=== PATIENT | male | born 1935 | race African-American/Black ===

== ENCOUNTER → 2017-08-24 | Outpatient (REF) | payer OTHER, MEDICARE, MEDICAID ==
[~2017-08-24] MED LIST: AMLO-552 PO; ASP325 PO; ASPI-1471 PO; BRIM5DRO7 OP; CELE-1 PO; DEXL30CA5 PO; DEXL60CA6 PO; DIC75 PO; FES4PT PO; FINA5TAB64 PO; HYDR-4309 PO; LOR5/325 PO; MELO-207 PO; METXR500 PO; MIRA25TA PO; MIRA50TA PO; NAPR500T75 PO; NIAC100040 PO; OMEP-137 PO; OMEP40CA45 PO; ONDA4TAB PO; OXYC-869 PO; PANT40TA65 PO; PER PO; PRAM0.5T27 PO; ROS10 PO; SOLI10TA8 PO; SOLI5TAB PO; TAMS0.4C70 PO; TEST200V2 IM; [UNRECOGNIZED DRUG - CODE] PO; [UNRECOGNIZED DRUG - CODE] PO
[2017-08-24 07:52] LABS: PLATELET COUNT, AUTOMATED 219 K/uL (150-450)
== END ==
LOC: ZZLCC 07:24
PROVIDERS: ATTEND Family Medicine
DX: I63.9 Cerebral infarction, unspecified (principal); E11.9 Type 2 diabetes mellitus without complications; E78.5 Hyperlipidemia, unspecified
CPT/HCPCS: 82040; 82247; 82310; 82374; 82435; 82465; 82565; 82947; 83036; 83718; 84075; 84132; 84155; 84295; 84450; 84460; 84478; 84520; 85025

== ENCOUNTER → 2018-03-08 | Outpatient (CLI) | payer MEDICARE, MEDICAID ==
[~2018-03-08] MED LIST changes: +GADOBENATE 529MG/1ML 15ML VIAL IVP ONE
--- NOTE | 2018-03-08 15:53 | RADIOLOGY IMAGING REPORT ---
FACILITY: [facility] PATIENT NAME: Italo Koch : 1935 MR: [id number] V: [id number] EXAM DATE: ORDERING PHYSICIAN: HAIDER BUSH TECHNOLOGIST: Location: [facility] [place] Patient: Italo Koch : 1935 Visit/Account:[id number] Date of Sevice: 03/08/2018 BRAIN W W/O CONTRAST Comparisons: Head CT scan without contrast dated October 23, 2016 Additional pertinent history: Memory loss TECHNIQUE: Multiplanar, multisequence brain MRI was performed with and without gadolinium contrast. CONTRAST: 12 ml of MultiHance. FINDINGS: Sagittal midline structures and craniocervical junction: Negative. Midline shift: None. Ventricles: Moderate enlargement of the lateral and third ventricles, appropriate for the degree of a trophy present. Brain parenchyma: Diffusion weighted imaging: Negative. Gradient sequence: Negative. T2 weighted FLAIR images: Patchy and confluent regions of abnormal increased T2 signal within the p eriventricular and subcortical white matter, nonspecific but likely representing small vessel ischemi c change on a chronic basis. Extra-axial spaces: Moderate cerebral atrophy. Dural venous sinuses and major arterial flow voids: Negative. Intracranial enhancement: Negative.. Mastoid air cells and paranasal sinuses: Mild mucosal thickening involving the maxillary sinuses and ethmoid air cells as well as the left mastoid air cells. Surrounding soft tissues and orbits: Previous enucleation of the right globe. Otherwise negative Impression: 1. Age related changes as described above. 2. No evidence of acute intracranial pathology. Report Dictated By: Saul Price MD at 03/08/2018 3:45 PM Report E-Signed By: Saul Price MD at 03/08/2018 3:48 PM [id number]
== END ==
LOC: MRI 04:51
PROVIDERS: ATTEND Family Medicine
DX: G31.1 Senile degeneration of brain, not elsewhere classified (principal); J32.0 Chronic maxillary sinusitis; Z90.01 Acquired absence of eye
CPT/HCPCS: 70553; A9577

== ENCOUNTER 2018-04-21 09:16 | Emergency (ER) | payer MEDICARE, MEDICAID ==
[~2018-04-21 09:16] MED LIST changes: -AMLO-111 PO; -ATOR20TA65 PO; -CLOP75TA PO; -LOSA50TA74 PO; -MIRT7.5T2 PO; -OXYB5TAB86 PO; -PANT20TA27 PO; -TRAM-420 PO
--- NOTE | 2018-04-21 09:22 | ER Report ---
History and Physical Time Seen By MD: 09:21 HPI/ROS CHIEF COMPLAINT: Episode of unresponsiveness,. Episode of altered mental status HISTORY OF PRESENT ILLNESS: Patient is an 83-year-old male here from the [facility] with a reported episode of not responding to staff, increased confusion. Staff reports that they attempted to wake the patient with the was not responding to them prompting evaluation in the emergency department. Patient has a history of dementia, diabetes, CK-MB. Staff denies history of recent fall. Patient was in no acute distress at time of evaluation, hemodynamically stable, maintaining oxygen saturations greater than 92% at time of evaluation. Patient was oriented to place. Patient's power of employment attorney was present at bedside shortly after arrival and voiced that this was his baseline mental status. Patient was in no acute distress, afebrile, hemodynamically stable. REVIEW OF SYSTEMS: Constitutional: No fever, no chills. Eyes: No discharge. ENT: No sore throat. Cardiovascular: No chest pain, no palpitations. Respiratory: No cough, no shortness of breath. Gastrointestinal: No abdominal pain, no vomiting. Genitourinary: No hematuria. Musculoskeletal: No back pain. Skin: No rashes. Neurological: + baseline mentation per POA, no new focal deficits Allergies: Coded Allergies: No Known Allergies (Verified Allergy, Mild, 04/21/18) Home Meds Reported Medications Tramadol Hcl (TRAMADOL HCL) 50 Mg Tablet, 50-100 MG PO Q6H, TAB 04/21/18 Pantoprazole Sodium (PANTOPRAZOLE SODIUM) 20 Mg Tablet.dr, 20 MG PO QDAY, TAB.SR 04/21/18 Oxybutynin Chloride (OXYBUTYNIN CHLORIDE) 5 Mg Tablet, 15 MG PO QDAY, TAB 04/21/18 Mirtazapine (MIRTAZAPINE) 7.5 Mg Tablet, 7.5 MG PO 04/21/18 Losartan Potassium (LOSARTAN POTASSIUM) 50 Mg Tablet, 50 MG PO QDAY 04/21/18 Clopidogrel Bisulfate (CLOPIDOGREL) 75 Mg Tablet, 1 TAB PO QDAY, TAB 04/21/18 Atorvastatin Calcium (ATORVASTATIN CALCIUM) 20 Mg Tablet, 1 TAB PO QDAY, TAB 04/21/18 Amlodipine Besylate (AMLODIPINE BESYLATE) 5 Mg Tablet, 1 TAB PO QDAY, TAB 11/7/18 Tamsulosin Hcl (TAMSULOSIN HCL) 0.4 Mg Cap.er.24h, 0.4 MG PO QHS, CAP 10/23/16 Metformin Hcl (Metformin Er) 500 Mg Tab.sr.24h, 1000 MG PO BID, 0 Refills 03/07/11 Discontinued Reported Medications Testosterone Enanthate (TESTOSTERONE ENANTHATE) 200 Mg/1 Ml Vial, 200 MG IM MONTHLY, VIAL 10/23/16 Meloxicam (MELOXICAM) 15 Mg Tablet, 15 MG PO QDAY 10/23/16 Solifenacin Succinate (VESICARE) 10 Mg Tablet, 10 MG PO QHS 10/23/16 Finasteride (PROSCAR) 5 Mg Tablet, 5 MG PO QDAY 10/23/16 Mirabegron (MYRBETRIQ) 50 Mg Tab.er.24h, 50 MG PO QDAY 10/23/16 Dexlansoprazole (DEXILANT) 60 Mg Cap., 60 MG PO QDAY 10/23/16 Aspirin (ASPIR 81) 81 Mg Tablet.dr, 81 MG PO QDAY, TAB 10/23/16 Amlodipine Bes/Olmesartan Med (DORENE 10-40 MG TABLET) 1 Each Tablet, 1 EACH PO QDAY 10/23/16 Niacin (Niaspan) 1,000 Mg Tablet.sa, 1000 MG PO QHS, 0 Refills 03/07/11 Hx Smoking: Yes ("ONLY 1-2 CIGARETTES A DAY" ) Smoking Status: Former Smoker, Light Tobacco Smoker Hx Substance Use Disorder: No Hx Alcohol Use: No Constitutional Vital Sign - Last 24 Hours 04/21/18 09:19 Temp 98.3 Pulse 86 Resp 20 B/P (MAP) 125/86 Pulse Ox 100 O2 Delivery Nasal Cannula Physical Exam General Appearance: The patient is alert, has no immediate need for airway protection and no signs of toxicity. NAD Eyes: No acute deformities or signs of trauma or foreign bodies. ENT, Mouth: Mucous membranes are moist. Respiratory: There are no retractions, lungs are clear to auscultation. Cardiovascular: Regular rate and rhythm. Gastrointestinal: Abdomen is soft and non tender, no masses, bowel sounds normal. Neurological: No focal neurological findings, moving all extremities spontaneously, baseline mental status per POA at bedside Skin: Warm and dry, no rashes. Musculoskeletal: Neck is supple non tender. Extremities are nontender, nonswollen and have full range of motion. DIFFERENTIAL DIAGNOSIS: After history and physical exam differential diagnosis was considered for dehydration, trauma, intracranial bleed, concussion, electrolyte abnormality, infection, progressive neurological decline Medical Decision Making Data Points Result Diagram: 04/21/1827 04/21/1827 Laboratory Hematology Test 04/21/18 09:27 04/21/18 10:10 Red Blood Count 3.63 M/uL (4.00-5.60) Mean Corpuscular Volume 94.4 fL (80.0-96.0) Mean Corpuscular Hemoglobin 31.6 pg (26.0-33.0) Mean Corpuscular Hemoglobin Concent 33.5 g/dL (32.0-36.0) Red Cell Distribution Width 14.6 % (11.5-14.5) Mean Platelet Volume 8.2 fL (7.2-11.1) Neutrophils (%) (Auto) 63.7 % (39.4-72.5) Lymphocytes (%) (Auto) 25.9 % (17.6-49.6) Monocytes (%) (Auto) 7.1 % (4.1-12.4) Eosinophils (%) (Auto) 2.7 % (0.4-6.7) Basophils (%) (Auto) 0.6 % (0.3-1.4) Nucleated RBC Relative Count (auto) 0.1 /100WBC Neutrophils # (Auto) 4.5 K/uL (2.0-7.4) Lymphocytes # (Auto) 1.8 K/uL (1.3-3.6) Monocytes # (Auto) 0.5 K/uL (0.3-1.0) Eosinophils # (Auto) 0.2 K/uL (0.0-0.5) Basophils # (Auto) 0.0 K/uL (0.0-0.1) Nucleated RBC Absolute Count (auto) 0.01 K/uL Sodium Level 138 mmol/L (137-145) Potassium Level 4.9 mmol/L (3.5-5.0) Chloride Level 103 mmol/L (98-107) Carbon Dioxide Level 26 mmol/L (22-30) Blood Urea Nitrogen 18 mg/dl (9-21) Creatinine 1.30 mg/dl (0.66-1.25) Glomerular Filtration Rate Calc 52.9 Random Glucose 124 mg/dl (75-110) Calcium Level 9.7 mg/dl (8.4-10.2) Total Bilirubin 0.5 mg/dl (0.2-1.3) Aspartate Amino Transf (AST/SGOT) 15 U/L (0-35) Alanine Aminotransferase (ALT/SGPT) 22 U/L (0-56) Alkaline Phosphatase 65 U/L (0-126) Troponin I < 0.012 ng/ml Total Protein 7.3 g/dl (6.3-8.2) Albumin 3.9 g/dl (3.5-5.0) Thyroid Stimulating Hormone (TSH) 4.86 uIU/ml (0.46-4.68) Urine Color Yellow Urine Clarity Clear Urine pH 5.0 pH (4.8-9.5) Urine Specific [place] 1.012 Urine Protein Negative mg/dL (NEGATIVE) Urine Glucose (UA) Negative mg/dL (NEGATIVE) Urine Ketones Negative mg/dL (NEGATIVE) Urine Blood Negative (NEGATIVE) Urine Nitrite Negative (NEGATIVE) Urine Bilirubin Negative (NEGATIVE) Urine Urobilinogen Negative mg/dL (0.2-1.9) Urine Leukocyte Esterase Negative (NEGATIVE) Urine RBC None /HPF (0-2/HPF) Urine WBC <1 /HPF (0-5/HPF) Urine Squamous Epithelial Cells None /LPF (</=FEW) Urine Bacteria Negative /HPF (NONE-FEW) Urine Hyaline Casts Few /LPF (NONE-FEW) Urine Mucus Few /HPF (NONE-FEW) Chemistry Test 04/21/18 09:27 04/21/18 10:10 White Blood Count 7.1 k/uL (4.5-11.0) Red Blood Count 3.63 M/uL (4.00-5.60) Hemoglobin 11.5 g/dL (14.0-18.0) Hematocrit 34.3 % (42.0-52.0) Mean Corpuscular Volume 94.4 fL (80.0-96.0) Mean Corpuscular Hemoglobin 31.6 pg (26.0-33.0) Mean Corpuscular Hemoglobin Concent 33.5 g/dL (32.0-36.0) Red Cell Distribution Width 14.6 % (11.5-14.5) Platelet Count 308 K/uL (150-450) Mean Platelet Volume 8.2 fL (7.2-11.1) Neutrophils (%) (Auto) 63.7 % (39.4-72.5) Lymphocytes (%) (Auto) 25.9 % (17.6-49.6) Monocytes (%) (Auto) 7.1 % (4.1-12.4) Eosinophils (%) (Auto) 2.7 % (0.4-6.7) Basophils (%) (Auto) 0.6 % (0.3-1.4) Nucleated RBC Relative Count (auto) 0.1 /100WBC Neutrophils # (Auto) 4.5 K/uL (2.0-7.4) Lymphocytes # (Auto) 1.8 K/uL (1.3-3.6) Monocytes # (Auto) 0.5 K/uL (0.3-1.0) Eosinophils # (Auto) 0.2 K/uL (0.0-0.5) Basophils # (Auto) 0.0 K/uL (0.0-0.1) Nucleated RBC Absolute Count (auto) 0.01 K/uL Glomerular Filtration Rate Calc 52.9 Calcium Level 9.7 mg/dl (8.4-10.2) Total Bilirubin 0.5 mg/dl (0.2-1.3) Aspartate Amino Transf (AST/SGOT) 15 U/L (0-35) Alanine Aminotransferase (ALT/SGPT) 22 U/L (0-56) Alkaline Phosphatase 65 U/L (0-126) Troponin I < 0.012 ng/ml Total Protein 7.3 g/dl (6.3-8.2) Albumin 3.9 g/dl (3.5-5.0) Thyroid Stimulating Hormone (TSH) 4.86 uIU/ml (0.46-4.68) Urine Color Yellow Urine Clarity Clear Urine pH 5.0 pH (4.8-9.5) Urine Specific [place] 1.012 Urine Protein Negative mg/dL (NEGATIVE) Urine Glucose (UA) Negative mg/dL (NEGATIVE) Urine Ketones Negative mg/dL (NEGATIVE) Urine Blood Negative (NEGATIVE) Urine Nitrite Negative (NEGATIVE) Urine Bilirubin Negative (NEGATIVE) Urine Urobilinogen Negative mg/dL (0.2-1.9) Urine Leukocyte Esterase Negative (NEGATIVE) Urine RBC None /HPF (0-2/HPF) Urine WBC <1 /HPF (0-5/HPF) Urine Squamous Epithelial Cells None /LPF (</=FEW) Urine Bacteria Negative /HPF (NONE-FEW) Urine Hyaline Casts Few /LPF (NONE-FEW) Urine Mucus Few /HPF (NONE-FEW) Urinalysis Test 04/21/18 10:10 Urine Color Yellow Urine Clarity Clear Urine pH 5.0 pH (4.8-9.5) Urine Specific [place] 1.012 Urine Protein Negative mg/dL (NEGATIVE) Urine Glucose (UA) Negative mg/dL (NEGATIVE) Urine Ketones Negative mg/dL (NEGATIVE) Urine Blood Negative (NEGATIVE) Urine Nitrite Negative (NEGATIVE) Urine Bilirubin Negative (NEGATIVE) Urine Urobilinogen Negative mg/dL (0.2-1.9) Urine Leukocyte Esterase Negative (NEGATIVE) Urine RBC None /HPF (0-2/HPF) Urine WBC <1 /HPF (0-5/HPF) Urine Squamous Epithelial Cells None /LPF (</=FEW) Urine Bacteria Negative /HPF (NONE-FEW) Urine Hyaline Casts Few /LPF (NONE-FEW) Urine Mucus Few /HPF (NONE-FEW) EKG/Imaging EKG Interpretation 12 lead EKG: Normal sinus rhythm, rate 76, QTC 418, no arrhythmias or ischemic changes Rhythm: normal sinus rhythm [place]: normal QRS: normal ST segments: normal Monitor Interpretation: Normal Sinus Rhythm Imaging Location: [facility] [place] Patient: Italo Koch : 1935 Visit/Account:[id number] Date of Sevice: 04/21/2018 Chest with lateral, two views. HISTORY: Altered mental status. COMPARISON: 10/23/2016. The aortic knob is calcified. The heart and mediastinum are otherwise unre markable. Pulmonary vessels are unremarkable. Interstitial markings are mildly thickened in the lung bases, unchanged. The lungs are otherwise clear. The pleural surfaces are unremarkable. No pneumothorax. A healed fracture is present in the right sixth rib. IMPRESSION: No evidence of acute cardiopulmonary disease. EXAMINATION: CT Head without intravenous contrast HISTORY: Altered mental status. TECHNIQUE: Axial images were obtained from the skull base to the vertex without intravenous contrast. Sagittal and coronal reformatted images are also submitte d. One of the following dose optimization techniques was utilized in the performance of this exam: Automated exposure control; adjustment of the mA and/or kV according to the patient's size; or use of an iterative reconstruction technique. Specific details can be referenced in the facility's radiology CT exam operational policy. COMPARISON: 10/23/2016. FINDINGS: Brain volume: Mild to moderate generalized brain parenchymal volume loss. Ventricles: Negative. Acute ischemic changes: None. Hemorrhage: None. Masses / edema: None. Brown-white: Stable mild chronic ischemic changes in the basal ganglia. White matter: Stable moderate to severe chronic microvascular ischemic changes. Vessels: Calcified plaque in the carotid siphons and right vertebral artery. Normal density in the dural venous sinuses. Extra-axial: Negative. Calvarium / skull base: Negative. Visualized sinuses / orbits: Right globe prosthesis. IMPRESSION: No acute intracranial abnormality. ED Course/Re-evaluation ED Course Patient is an 83-year-old male here status post episode of decreased responsiveness at the [facility] In the setting of progressive dementia per patient's power of employment attorney who was at bedside. Patient was hydrated using 1.5 L of fluid with significant improvement of symptoms. Labs were unremarkable, EKG showed no acute findings. CT of the head showed no acute findings or intracranial bleeds and x-ray showed no signs of consolidation or edema. I discussed the findings with the patient's power of employment attorney who voice und erstanding and noted that the patient was more alert and oriented than he had been and months. Daily interventions pursued in the emergency department where IV hydration which may reveal that the patient was mildly dehydrated. Patient was returned to the [facility] in stable condition. Decision to Disposition Date: Apr 21, 2018 Decision to Disposition Time: 12:30 Depart Departure Latest Vital Signs Vital Signs Date Time Temp Pulse Resp B/P (MAP) Pulse Ox O2 Delivery O2 Flow Rate FiO2 04/21/18 09:19 98.3 86 20 125/86 100 Nasal Cannula Impression: Primary Impression: Confusion Condition: Improved Disposition: HOME OR SELF-CARE Referrals: HAIDER BUSH DO (PCP) Patient Instructions: Dehydration (ED) Additional Instructions: Please drink plenty of water. Today you were given 1.5 L of normal saline. CT imaging of your head showed no acute findings of bleeding or fluid on the brain. Chest x-ray showed no signs of infection such as pneumonia or bronchitis or pulmonary edema. Please follow up closely with your family doctor in the next 2 days. I discussed your findings and plan for care with your power of employment attorney. Please return promptly if you develop recurrent symptoms, change in mental status, fevers, shortness of breath, abdominal pain, nausea, vomiting. RADHA MARROQUIN DO Apr 21, 2018 09:22
[2018-04-21] MEDS ORDERED: NS(*) 0.9% 1000 ML BAG 1,000 ML IV ONE (09:27)
[2018-04-21 09:35] LABS: PLATELET COUNT, AUTOMATED 308 K/uL (150-450)
[2018-04-21] MEDS ORDERED: OXYB5TAB86 PO (09:45)
[2018-04-21] MEDS ORDERED: LOSA50TA74 PO (09:45)
[2018-04-21] MEDS ORDERED: AMLO-111 PO (09:45)
[2018-04-21] MEDS ORDERED: ATOR20TA65 PO (09:45)
[2018-04-21] MEDS ORDERED: CLOP75TA PO (09:45)
[2018-04-21] MEDS ORDERED: MIRT7.5T2 PO (09:45)
[2018-04-21] MEDS ORDERED: TRAM-420 PO (09:45)
[2018-04-21] MEDS ORDERED: PANT20TA27 PO (09:45)
--- NOTE | 2018-04-21 10:45 | EKG ---
FACILITY: [facility] PATIENT NAME: BLOSSOM SILVA : [id number] MR: [id number] V: [id number] EXAM DATE: ORDERING PHYSICIAN: RADHA MARROQUIN TECHNOLOGIST: SALAS Test Reason : AMS Blood Pressure : / mmHG Vent. Rate : 076 BPM Atrial Rate : 076 BPM P-R Int : 194 ms QRS Dur : 076 ms QT Int : 372 ms P-R-T Axes : 056 054 053 degrees QTc Int : 418 ms Normal sinus rhythm Normal ECG When compared with ECG of 23-OCT-2016 18:51, Nonspecific T wave abnormality no longer evident in Lateral leads Confirmed by Karel Orta ([id number]) on 04/21/2018 7:58:48 PM Referred By: CARA Confirmed By:Karel Solitario
--- NOTE | 2018-04-21 11:10 | RADIOLOGY IMAGING REPORT ---
FACILITY: [facility] - [place] PATIENT NAME: Italo Koch : 1935 MR: [id number] V: [id number] EXAM DATE: ORDERING PHYSICIAN: RADHA MARROQUIN TECHNOLOGIST: Location: [facility] [place] Patient: Italo Koch : 1935 Visit/Account:[id number] Date of Sevice: 04/21/2018 EXAMINATION: CT Head without intravenous contrast HISTORY: Altered mental status. TECHNIQUE: Axial images were obtained from the skull base to the vertex without intravenous contrast . Sagittal and coronal reformatted images are also submitted. One of the following dose optimization techniques was utilized in the performance of this exam: Autom ated exposure control; adjustment of the mA and/or kV according to the patient's size; or use of an i terative reconstruction technique. Specific details can be referenced in the facility's radiology C T exam operational policy. COMPARISON: 10/23/2016. FINDINGS: Brain volume: Mild to moderate generalized brain parenchymal volume loss. Ventricles: Negative. Acute ischemic changes: None. Hemorrhage: None. Masses / edema: None. Brown-white: Stable mild chronic ischemic changes in the basal ganglia. White matter: Stable moderate to severe chronic microvascular ischemic changes. Vessels: Calcified plaque in the carotid siphons and right vertebral artery. Normal density in the d ural venous sinuses. Extra-axial: Negative. Calvarium / skull base: Negative. Visualized sinuses / orbits: Right globe prosthesis. IMPRESSION: No acute intracranial abnormality. Report Dictated By: Cachorro Owusu MD at 04/21/2018 11:02 AM Report E-Signed By: Cachorro Owusu MD at 04/21/2018 11:06 AM WSN:[email or web address]
--- NOTE | 2018-04-21 11:18 | RADIOLOGY IMAGING REPORT ---
FACILITY: [facility] PATIENT NAME: Italo Koch : 1935 MR: [id number] V: [id number] EXAM DATE: ORDERING PHYSICIAN: RADHA MARROQUIN TECHNOLOGIST: Location: [facility] - [place] Patient: Italo Koch : 1935 Visit/Account:[id number] Date of Sevice: 04/21/2018 Chest with lateral, two views. HISTORY: Altered mental status. COMPARISON: 10/23/2016. The aortic knob is calcified. The heart and mediastinum are otherwise unremarkable. Pulmonary vesse ls are unremarkable. Interstitial markings are mildly thickened in the lung bases, unchanged. The l ungs are otherwise clear. The pleural surfaces are unremarkable. No pneumothorax. A healed fracture is present in the right sixth rib. IMPRESSION: No evidence of acute cardiopulmonary disease. Report Dictated By: Kobe Gonzalez MD at 04/21/2018 11:11 AM Report E-Signed By: Kobe Gonzalez MD at 04/21/2018 11:14 AM WSN:[id number]
[2018-04-21 11:30] VITALS: BP 130/74
[2018-04-21] MEDS ORDERED: NS(*) 0.9% 500 ML BAG 500 ML IV ONE (11:55)
== END 2018-04-21 12:53 | disposition home or self-care (01) ==
LOC: ER 09:32
DX: R41.0 Disorientation, unspecified (principal); E86.0 Dehydration
CPT/HCPCS: 70450; 71046; 81001; 84443; 84484; 85025; 93005; 96360; 96361; 99284; J7030; J7040; 36416; 82040; 82247; 82310; 82374; 82435; 82565; 82947; 82948; 84075; 84132; 84155; 84295; 84450; 84460; 84520

== ENCOUNTER → 2018-04-21 | Outpatient (CLI) | payer MEDICARE, MEDICAID ==
[~2018-04-21] MED LIST changes: +AMLO-111 PO; +ATOR20TA65 PO; +CLOP75TA PO; -GADOBENATE 529MG/1ML 15ML VIAL IVP ONE; -HYDR-4309 PO; +HYDR-653 PO; +LOSA50TA74 PO; +MIRT7.5T2 PO; +OXYB5TAB86 PO; +PANT20TA27 PO; +TRAM-420 PO
== END ==
LOC: AMB 09:02
PROVIDERS: ATTEND Nurse Practitioner
DX: R55 Syncope and collapse (principal); R53.1 Weakness
CPT/HCPCS: A0425; A0428; A0427

== ENCOUNTER → 2018-07-26 | Outpatient (REF) | payer MEDICARE, MEDICAID ==
[~2018-07-26] MED LIST changes: +AMLO-125 PO; +ATOR20TA65 PO; +CLOP75TA PO; +LOSA50TA80 PO; +MIRT7.5T2 PO; +OXYB5TAB86 PO; +PANT20TA27 PO; +TRAM-420 PO
== END ==
LOC: ZZLCC 19:30
PROVIDERS: ATTEND Family Medicine
DX: R50.9 Fever, unspecified (principal); R53.81 Other malaise
CPT/HCPCS: 87502

== ENCOUNTER → 2018-08-01 | Outpatient (REF) | payer MEDICARE, MEDICAID | LOC: ZZLCC 11:08 | PROVIDERS: ATTEND Family Medicine | DX: I63.9 Cerebral infarction, unspecified (principal); I69.319 Unspecified symptoms and signs involving cognitive functions following cerebral infarction; N18.9 Chronic kidney disease, unspecified; N39.0 Urinary tract infection, site not specified; Z79.899 Other long term (current) drug therapy | CPT/HCPCS: 81001; 85027; 87088 ==

== ENCOUNTER → 2018-08-02 | Outpatient (REF) | payer MEDICARE, MEDICAID | LOC: ZZLCC 18:43 | PROVIDERS: ATTEND Family Medicine | DX: N39.0 Urinary tract infection, site not specified (principal) | CPT/HCPCS: 85025; 85027 ==

== ENCOUNTER → 2018-08-13 | Outpatient (CLI) | payer MEDICARE, MEDICAID ==
[2018-08-13 15:16] LABS: PLATELET COUNT, AUTOMATED 367 K/uL (150-450)
== END ==
LOC: LAB 14:38
PROVIDERS: ATTEND Surgery
DX: D50.9 Iron deficiency anemia, unspecified (principal); E11.9 Type 2 diabetes mellitus without complications
CPT/HCPCS: 36415; 83036; 85025

== ENCOUNTER 2018-08-24 03:38 | Day surgery (SDC) | payer MEDICARE, MEDICAID ==
[~2018-08-24] VITALS: Ht 165.1 cm; Wt 60.3 kg
[~2018-08-24 03:38] MED LIST changes: +ACET-1966 PO; +CYAN100088 PO; +DICL100G39 TOP; +MULT-839 PO
[2018-08-24 13:01] VITALS: BP 135/69
[2018-08-24] MEDS ORDERED: LIDOCAINE/SOD BICARB 8.4% SYR ID ONE (13:45)
[2018-08-24] MEDS ORDERED: NORMOSOL R SOLN(*) 1000 ML BAG 1,000 ML IV PRN (13:45)
[2018-08-24 14:34] VITALS: BP 95/69
[2018-08-24 14:45] VITALS: BP 106/83
--- NOTE | 2018-08-24 14:57 | Short(Outpt) Discharge Summary ---
Discharge Summary Reason for Hosp/Final Diag: (1) IRON DEFICIENCY ANEMIA, UNSPECIFIED Hospital Course & Plan: pt presented for egd and colonoscopy. he tolerated the procedures well and there were no complications. he will be discharged when criteria met. Departure Discharge to: Long Term Discharge Instructions Home Meds Reported Medications Cyanocobalamin (Vitamin B-12) (B-12) 1,000 Mcg Tablet.er, 1000 MCG PO QDAY 08/19/18 Multivitamin (TAB-A-REBECA) 1 Each Tablet, 1 EACH PO QDAY 08/19/18 Diclofenac Sodium 1% Gel (VOLTAREN 1% GEL) 100 Gm Gel..gram., 2 GM TOP PRN 08/19/18 Acetaminophen (TYLENOL) 325 Mg Tablet, 325 MG PO PRN, TAB 08/19/18 Tramadol Hcl (TRAMADOL HCL) 50 Mg Tablet, 50-100 MG PO Q6H, TAB 04/21/18 Pantoprazole Sodium (PANTOPRAZOLE SODIUM) 20 Mg Tablet.dr, 20 MG PO QDAY, TAB.SR 04/21/18 Oxybutynin Chloride (OXYBUTYNIN CHLORIDE) 5 Mg Tablet, 15 MG PO QDAY, TAB 04/21/18 Mirtazapine (MIRTAZAPINE) 7.5 Mg Tablet, 7.5 MG PO 04/21/18 Losartan Potassium (LOSARTAN POTASSIUM) 50 Mg Tablet, 50 MG PO QDAY 04/21/18 Clopidogrel Bisulfate (CLOPIDOGREL) 75 Mg Tablet, 1 TAB PO QDAY, TAB 04/21/18 Atorvastatin Calcium (ATORVASTATIN CALCIUM) 20 Mg Tablet, 1 TAB PO QDAY, TAB 04/21/18 Amlodipine Besylate (AMLODIPINE BESYLATE) 5 Mg Tablet, 1 TAB PO QDAY, TAB 04/21/18 Tamsulosin Hcl (TAMSULOSIN HCL) 0.4 Mg Cap.er.24h, 0.4 MG PO QHS, CAP 10/23/16 Metformin Hcl (Metformin Er) 500 Mg Tab.sr.24h, 1000 MG PO BID, 0 Refills 03/07/11 Diet: Regular Activity: As Tolerated Special Instructions: we will call you in 10 days with biopsy results. ETNA HORVATH Aug 24, 2018 14:57
[2018-08-24 15:00] VITALS: BP 125/91
[2018-08-24 15:30] VITALS: BP 138/74
[2018-08-24 15:34] VITALS: BP 132/77
--- NOTE | 2018-08-24 16:05 | NUR ---
1434 SBAR REPORT WAS RECEIVED FROM DR. VILLAGRAN AND KAUR SANTIZO. PATIENT IS BREATHING SPONTANEOUSLY AT A MODERATE RATE AND DEPTH. LUNGS ARE CLEAR. HE IS ON 2 LITERS NASAL CANNULA. BOWEL SOUNDS ARE HYPERACTIVE. HE DENIES ANY PAIN OR NAUSEA. PATIENT IS INCONTINENT AND PADS WERE APPLIED TO BED. PATIENT IS COUGHING SLIGHTLY. HEART SOUNDS ARE DISTANT. SEE ADMISSION ASSESSMENT. 1445 PATIENT CONTINUES TO REST IN THE BED. 1500 PATIENT CONTINUES TO REST AND APPEARS RELAXED. 1505 PATIENT WAS BECOMING SLIGHTLY AGITATED AND IS WANTING TO LEAVE. PATIENT IS ROLLING AROUND IN THE BED AND TRYING TO TAKE HIS GOWN OFF. HE WAS SLIGHTLY WET AND THERE WAS STOOL ON HIS BOTTOM. 1510 I WAS ABLE TO CHANGE THE BRIEF ON THE PATIENT AND HELPED THE PATIENT GET DRESSED. WARM BLANKETS WERE APPLIED AND HE APPEARED MORE RELAXED. 1522 FINISHED GETTING PATIENT DRESSED. 1525 YOJANA WAS BROUGHT INTO THE ROOM. 1534 PATIENT WAS MOVED TO SITTING POSITION. VITALS WERE TAKEN. HE DENIES ANY PAIN OR NAUSEA. DIZZINESS OR LIGHTHEADEDNESS. 1540 GAIT BELT WAS APPLIED AND PATIENT WAS MOVED TO HIS WHEELCHAIR WITH ASSISTANCE. 1545 PATIENT BEGAN DRINKING COFFEE AND IS TOLERATING THIS WELL. WARM BLANKETS WERE APPLIED 1558 WENT OVER DC INSTRUCTIONS WITH PATIENTS THAI AND HAYDE FROM [facility]. 1600 IV WAS DC'D WITH CATH INTACT. 1605 PATIENT WAS DC'D AND WAS IN A WHEELCHAIR ON DISCHARGE. HE WAS ACCOMPANIED BY Bree RILEY, GLYNN ANDRE, AND HAYDE FROM [facility]. LUNGS ARE CLEAR. BOWEL SOUNDS ARE HYPERACTIVE. HEART SOUNDS ARE DISTANT. HE DENIES ANY PAIN OR NAUSEA. SEE DISCHARGE ASSESSMENT.
== END 2018-08-24 16:05 | disposition home or self-care (01) ==
LOC: OR 03:38
PROVIDERS: ATTEND Surgery
DX: D12.2 Benign neoplasm of ascending colon (principal); K20.9 Esophagitis, unspecified; E11.9 Type 2 diabetes mellitus without complications
CPT/HCPCS: 36416; 82948; 88305

== ENCOUNTER → 2018-08-26 | Outpatient (REF) | payer MEDICARE, MEDICAID ==
[2018-08-26 09:27] LABS: LDL CHOLESTEROL 55 mg/dl
== END ==
LOC: ZZSENDIN 08:10
PROVIDERS: ATTEND Family Medicine
DX: E78.5 Hyperlipidemia, unspecified (principal); E11.9 Type 2 diabetes mellitus without complications; I63.9 Cerebral infarction, unspecified; Z79.84 Long term (current) use of oral hypoglycemic drugs
CPT/HCPCS: 82040; 82247; 82310; 82374; 82435; 82465; 82565; 82947; 83036; 83718; 84075; 84132; 84155; 84295; 84450; 84460; 84478; 84520; 85027

== ENCOUNTER → 2018-08-30 | Outpatient (REF) | payer MEDICARE, MEDICAID ==
[2018-08-30 08:07] LABS: PLATELET COUNT, AUTOMATED 252 K/uL (150-450)
== END ==
LOC: ZZLCC 07:54
PROVIDERS: ATTEND Family Medicine
DX: K92.1 Melena (principal)
CPT/HCPCS: 85025

== ENCOUNTER → 2018-09-06 | Outpatient (REF) | payer MEDICARE, MEDICAID ==
[2018-09-06 08:58] LABS: PLATELET COUNT, AUTOMATED 347 K/uL (150-450)
== END ==
LOC: ZZLCC 08:23
PROVIDERS: ATTEND Family Medicine
DX: K92.1 Melena (principal)
CPT/HCPCS: 85025

== ENCOUNTER 2018-10-12 17:42 | Observation (INO) | payer MEDICARE, MEDICAID ==
[~2018-10-12] VITALS: Ht 165.1 cm; Wt 62.4 kg
[2018-10-12] MEDS ORDERED: NS(*) 0.9% 1000 ML BAG 1,000 ML IV ONE (18:05)
--- NOTE | 2018-10-12 18:13 | ER Report ---
History and Physical Time Seen By MD: 18:13 Hx. of Stated Complaint: PT TO ER FROM [facility]. REPORT AMS THAT STARTED THIS AM. PT HAS NO COMPLAINTS IN ASSESSMENT HPI/ROS CHIEF COMPLAINT: altered mental status HISTORY OF PRESENT ILLNESS: This is an 83 year old male. He was sent to the ER today from [facility]. He has baseline dementia, is non-ambulatory, assist with all ADLs, but usually can follow simple commands. Reported fatigue by [facility] staff over the last 48 hours, and today unable to follow commands. Unable to stand. He is normally incontinent of stool and urine. He has no reported skin breakdown. No reported fevers or chills. Patient is unable to interact with me at all and very limited with the nurses here. He is a FULL CODE. REVIEW OF SYSTEMS: Unable to obtain Allergies: Coded Allergies: No Known Allergies (Verified Allergy, Mild, 10/12/18) Home Meds Reported Medications Metformin Hcl (METFORMIN HCL) 500 Mg Tablet, 1 TAB PO BID, TAB 10/12/18 Ferrous Sulfate (FERROUSUL) 325 Mg Tablet, 325 MG PO QDAY 10/12/18 Cyanocobalamin (Vitamin B-12) (B-12) 1,000 Mcg Tablet.er, 1000 MCG PO QDAY 08/19/18 Multivitamin (TAB-A-REBECA) 1 Each Tablet, 1 EACH PO QDAY 08/19/18 Diclofenac Sodium 1% Gel (VOLTAREN 1% GEL) 100 Gm Gel..gram., 2 GM TOP PRN 08/19/18 Acetaminophen (TYLENOL) 325 Mg Tablet, 325 MG PO PRN, TAB 08/19/18 Tramadol Hcl (TRAMADOL HCL) 50 Mg Tablet, 50-100 MG PO Q6H, TAB 04/21/18 Pantoprazole Sodium (PANTOPRAZOLE SODIUM) 20 Mg Tablet.dr, 20 MG PO QDAY, TAB.SR 04/21/18 Oxybutynin Chloride (OXYBUTYNIN CHLORIDE) 5 Mg Tablet, 15 MG PO QDAY, TAB 04/21/18 Mirtazapine (MIRTAZAPINE) 7.5 Mg Tablet, 7.5 MG PO 04/21/18 Losartan Potassium (LOSARTAN POTASSIUM) 50 Mg Tablet, 50 MG PO QDAY 04/21/18 Clopidogrel Bisulfate (CLOPIDOGREL) 75 Mg Tablet, 1 TAB PO QDAY, TAB 04/21/18 Atorvastatin Calcium (ATORVASTATIN CALCIUM) 20 Mg Tablet, 1 TAB PO QDAY, TAB 04/21/18 Amlodipine Besylate (AMLODIPINE BESYLATE) 5 Mg Tablet, 1 TAB PO QDAY, TAB 04/21/18 Tamsulosin Hcl (TAMSULOSIN HCL) 0.4 Mg Cap.er.24h, 0.4 MG PO QHS, CAP 10/23/16 Discontinued Reported Medications Metformin Hcl (Metformin Er) 500 Mg Tab.sr.24h, 1000 MG PO BID, 0 Refills 03/07/11 Reviewed Nurses Notes: Yes Hx Smoking: Yes ("ONLY 1-2 CIGARETTES A DAY" ) Smoking Status: Former Smoker, Light Tobacco Smoker Hx Substance Use Disorder: No Hx Alcohol Use: No Constitutional Vital Sign - Last 24 Hours 10/12/18 10/12/18 10/12/18 10/12/18 17:45 17:49 17:51 18:00 Temp 98.0 Pulse ??? 90 89 Resp 16 16 B/P (MAP) 174/100 (124) 174/100 166/91 (116) Pulse Ox 90 92 O2 Delivery Room Air 10/12/18 10/12/18 10/12/18 10/12/18 18:15 18:30 18:45 18:50 Pulse 75 79 84 84 Resp 12 18 20 19 B/P (MAP) 177/107 (130) Pulse Ox 91 91 91 92 10/12/18 10/12/18 10/12/18 10/12/18 19:00 19:05 19:30 19:45 Pulse 83 87 93 Resp 19 19 11 B/P (MAP) 160/94 (116) 174/103 (126) Pulse Ox 92 90 92 10/12/18 10/12/18 10/12/18 10/12/18 20:00 20:15 20:30 20:45 Pulse 87 104 91 96 Resp 9 24 12 9 B/P (MAP) 154/82 (106) 139/80 (99) Pulse Ox 91 94 90 10/12/18 10/12/18 10/12/18 10/12/18 21:00 21:05 21:10 21:15 Pulse 77 80 77 79 Resp 13 12 19 14 B/P (MAP) 153/90 (111) 10/12/18 10/12/18 21:20 21:25 Pulse 78 86 Resp 15 17 Intake and Output 10/12/18 10/12/18 10/13/18 15:00 23:00 07:00 Output Total 200 ml Balance -200 ml Physical Exam General Appearance: The patient is alert. No acute distress. Eyes: Pupils are equal, round. Reactive to light. No pallor, injection or icterus. ENT: Mucous membranes are dry. Otherwise normal oral mucosa. Neck: No thyromegaly or lymphadenopathy. Respiratory: Breathing easily and unlabored. Lungs are clear to auscultation. There are no retractions or accessory muscle use. Cardiovascular: Regular rate and rhythm, distant. Normal capillary refill. Gastrointestinal: Abdomen is soft. Nondistended. No apparent tenderness. Normal active bowel sounds. Neurological: Will not respond to my verbal, tactile stimuli. Does withdraw from pain and grimace. Does seem to be moving all extremities by observation, but generally weak. Cannot get cooperation with neuro exam at this time. Skin: Warm and dry. No rashes. No skin breakdown noted. Musculoskeletal: Extremities without apprent tenderness. No apparent tenderness in palpation of the cervical, thoracic and lumbar spine. DIFFERENTIAL DIAGNOSIS: After history and physical exam, differential diagnosis was considered for altered mental status including but not limited to hypoglycemia, infectious process, electrolyte abnormality, head injury and intoxicants. Medical Decision Making Data Points Result Diagram: 10/12/18 1756 10/12/18 1756 Laboratory Hematology Test 10/12/18 17:56 10/12/18 18:02 10/12/18 18:35 Red Blood Count 3.91 M/uL (4.00-5.60) Mean Corpuscular Volume 88.9 fL (80.0-96.0) Mean Corpuscular Hemoglobin 29.1 pg (26.0-33.0) Mean Corpuscular Hemoglobin Concent 32.7 g/dL (32.0-36.0) Red Cell Distribution Width 15.1 % (11.5-14.5) Mean Platelet Volume 8.9 fL (7.2-11.1) Neutrophils (%) (Auto) 70.5 % (39.4-72.5) Lymphocytes (%) (Auto) 20.8 % (17.6-49.6) Monocytes (%) (Auto) 6.4 % (4.1-12.4) Eosinophils (%) (Auto) 1.1 % (0.4-6.7) Basophils (%) (Auto) 1.2 % (0.3-1.4) Nucleated RBC Relative Count (auto) 0.0 /100WBC Neutrophils # (Auto) 5.8 K/uL (2.0-7.4) Lymphocytes # (Auto) 1.7 K/uL (1.3-3.6) Monocytes # (Auto) 0.5 K/uL (0.3-1.0) Eosinophils # (Auto) 0.1 K/uL (0.0-0.5) Basophils # (Auto) 0.1 K/uL (0.0-0.1) Nucleated RBC Absolute Count (auto) 0.00 K/uL Sodium Level 140 mmol/L (137-145) Potassium Level 4.3 mmol/L (3.5-5.0) Chloride Level 106 mmol/L (98-107) Carbon Dioxide Level 26 mmol/L (22-30) Blood Urea Nitrogen 21 mg/dl (9-21) Creatinine 1.10 mg/dl (0.66-1.25) Glomerular Filtration Rate Calc > 60.0 Random Glucose 145 mg/dl (75-110) Calcium Level 10.0 mg/dl (8.4-10.2) Total Bilirubin 0.2 mg/dl (0.2-1.3) Aspartate Amino Transf (AST/SGOT) 18 U/L (0-35) Alanine Aminotransferase (ALT/SGPT) 13 U/L (0-56) Alkaline Phosphatase 69 U/L (0-126) Troponin I < 0.012 ng/ml Total Protein 7.7 g/dl (6.3-8.2) Albumin 4.2 g/dl (3.5-5.0) Lactate 1.7 mmol/L (0.7-2.1) Urine Color Cherri Urine Clarity Slightly-cloudy Urine pH 6.0 pH (4.8-9.5) Urine Specific [place] 1.016 Urine Protein Negative mg/dL (NEGATIVE) Urine Glucose (UA) Negative mg/dL (NEGATIVE) Urine Ketones Trace mg/dL (NEGATIVE) Urine Blood Negative (NEGATIVE) Urine Nitrite Negative (NEGATIVE) Urine Bilirubin Negative (NEGATIVE) Urine Urobilinogen 2.0 mg/dL (0.2-1.9) Urine Leukocyte Esterase Moderate (NEGATIVE) Urine RBC 1 /HPF (0-2/HPF) Urine WBC 41 /HPF (0-5/HPF) Urine Squamous Epithelial Cells None /LPF (NONE-FEW) Urine Bacteria Negative /HPF (NONE-FEW) Urine Mucus Few /HPF (NONE-FEW) Chemistry Test 10/12/18 17:56 10/12/18 18:02 10/12/18 18:35 White Blood Count 8.3 k/uL (4.5-11.0) Red Blood Count 3.91 M/uL (4.00-5.60) Hemoglobin 11.4 g/dL (14.0-18.0) Hematocrit 34.8 % (42.0-52.0) Mean Corpuscular Volume 88.9 fL (80.0-96.0) Mean Corpuscular Hemoglobin 29.1 pg (26.0-33.0) Mean Corpuscular Hemoglobin Concent 32.7 g/dL (32.0-36.0) Red Cell Distribution Width 15.1 % (11.5-14.5) Platelet Count 307 K/uL (150-450) Mean Platelet Volume 8.9 fL (7.2-11.1) Neutrophils (%) (Auto) 70.5 % (39.4-72.5) Lymphocytes (%) (Auto) 20.8 % (17.6-49.6) Monocytes (%) (Auto) 6.4 % (4.1-12.4) Eosinophils (%) (Auto) 1.1 % (0.4-6.7) Basophils (%) (Auto) 1.2 % (0.3-1.4) Nucleated RBC Relative Count (auto) 0.0 /100WBC Neutrophils # (Auto) 5.8 K/uL (2.0-7.4) Lymphocytes # (Auto) 1.7 K/uL (1.3-3.6) Monocytes # (Auto) 0.5 K/uL (0.3-1.0) Eosinophils # (Auto) 0.1 K/uL (0.0-0.5) Basophils # (Auto) 0.1 K/uL (0.0-0.1) Nucleated RBC Absolute Count (auto) 0.00 K/uL Glomerular Filtration Rate Calc > 60.0 Calcium Level 10.0 mg/dl (8.4-10.2) Total Bilirubin 0.2 mg/dl (0.2-1.3) Aspartate Amino Transf (AST/SGOT) 18 U/L (0-35) Alanine Aminotransferase (ALT/SGPT) 13 U/L (0-56) Alkaline Phosphatase 69 U/L (0-126) Troponin I < 0.012 ng/ml Total Protein 7.7 g/dl (6.3-8.2) Albumin 4.2 g/dl (3.5-5.0) Lactate 1.7 mmol/L (0.7-2.1) Urine Color Cherri Urine Clarity Slightly-cloudy Urine pH 6.0 pH (4.8-9.5) Urine Specific [place] 1.016 Urine Protein Negative mg/dL (NEGATIVE) Urine Glucose (UA) Negative mg/dL (NEGATIVE) Urine Ketones Trace mg/dL (NEGATIVE) Urine Blood Negative (NEGATIVE) Urine Nitrite Negative (NEGATIVE) Urine Bilirubin Negative (NEGATIVE) Urine Urobilinogen 2.0 mg/dL (0.2-1.9) Urine Leukocyte Esterase Moderate (NEGATIVE) Urine RBC 1 /HPF (0-2/HPF) Urine WBC 41 /HPF (0-5/HPF) Urine Squamous Epithelial Cells None /LPF (NONE-FEW) Urine Bacteria Negative /HPF (NONE-FEW) Urine Mucus Few /HPF (NONE-FEW) Urinalysis Test 10/12/18 18:35 Urine Color Cherri Urine Clarity Slightly-cloudy Urine pH 6.0 pH (4.8-9.5) Urine Specific [place] 1.016 Urine Protein Negative mg/dL (NEGATIVE) Urine Glucose (UA) Negative mg/dL (NEGATIVE) Urine Ketones Trace mg/dL (NEGATIVE) Urine Blood Negative (NEGATIVE) Urine Nitrite Negative (NEGATIVE) Urine Bilirubin Negative (NEGATIVE) Urine Urobilinogen 2.0 mg/dL (0.2-1.9) Urine Leukocyte Esterase Moderate (NEGATIVE) Urine RBC 1 /HPF (0-2/HPF) Urine WBC 41 /HPF (0-5/HPF) Urine Squamous Epithelial Cells None /LPF (NONE-FEW) Urine Bacteria Negative /HPF (NONE-FEW) Urine Mucus Few /HPF (NONE-FEW) EKG/Imaging EKG Interpretation 12 lead EKG: Rhythm: normal sinus rhythm, rate 89 [place]: normal QRS: normal ST segments: normal Imaging CT Head without contrast Indication: Altered mental status. Comparison: 04/21/2018. Technique: Axial CT images were obtained through the brain from the skull base to the vertex without administration of IV contrast. Reformatted coronal and sagittal images were also obtained. One of the following dose optimization techniques was utilized in the performance of this exam: automated exposure control; adjustment of the mA and/or kV according to the patient's size; or use of an iterative reconstruction technique. Specific details can be referenced in the facility's radiology CT exam operational policy. Findings: No evidence of mass, mass effect, or midline shift. No acute intracranial hemorrhage or acute territorial infarction. No extra-axial fluid collection or hydrocephalus. Age-related cerebral atrophy. Periventricular white matter ischemic changes consistent small vessel disease. Previous lacunar infarct in the right basal ganglia stable. Brown/white matter differentiation appears normal. Mild bilateral internal carotid artery calcifications. Bony structures show no fractures or lesions. 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 The visualized paranasal sinuses and mastoid air cells are clear. IMPRESSION: 1. Senescent changes without acute abnormality. Report Dictated By: Fermín Chowdhury at 10/12/2018 7:39 PM CHEST SINGLE AP Indication: Altered mental status.. Comparison: 04/21/2018. Findings: Cardiomediastinal silhouette and pulmonary vessels within normal limits for the technique and rotation. There is no focal infiltrate or lobar consolidation. No pneumothorax or pleural effusion. No nodule. Upper abdomen is unremarkable. No acute bony abnormality. IMPRESSION: 1. No acute cardiopulmonary process. Report Dictated By: Fermín Chowdhury at 10/12/2018 7:38 PM ED Course/Re-evaluation Clinical Indication for ER IV: Hydration, IV Access ED Course With initial evaluation, considered the possibility of bleeding from falls, urinary tract infection, dehydration, medicine effects. Patient has not really improved with half a liter of normal saline here in the ER. Urine shows some leukocytes but no other changes. No sign of acute cardiopulmonary process on x- ray. Patient is afebrile. Discussed the case with the hospitalist and then called and spoke with the patient's primary care provider. After these discussions, we went ahead and admitted for observation for altered mental status, plan to the gentle hydration, holding medicines, and seeing if he improves or if anything else defines itself. Decision to Disposition Date: Oct 12, 2018 Decision to Disposition Time: 20:54 Depart Departure Latest Vital Signs Vital Signs Date Time Temp Pulse Resp B/P (MAP) Pulse Ox O2 Delivery O2 Flow Rate FiO2 10/12/18 21:25 86 17 10/12/18 21:00 153/90 (111) 10/12/18 20:30 90 10/12/18 17:51 98.0 Room Air Impression: Primary Impression: Altered mental state Condition: Improved Disposition: HOME OR SELF-CARE Problem Qualifiers Primary Impression: Altered mental state Altered mental status type: unspecified Qualified Codes: R41.82 - Altered mental status, unspecified MAO ACUNA MD Oct 12, 2018 18:13
[2018-10-12 18:14] LABS: PLATELET COUNT, AUTOMATED 307 K/uL (150-450)
--- NOTE | 2018-10-12 18:15 | EKG ---
[place] [facility] [place] NAME: BLOSSOM SILVA : [id number] MR: [id number] V: [id number] EXAM DATE: ORDERING PHYSICIAN: MAO ACUNA TECHNOLOGIST: KWESI Reed Reason : NEURO Blood Pressure : / mmHG Vent. Rate : 089 BPM Atrial Rate : 089 BPM P-R Int : 164 ms QRS Dur : 078 ms QT Int : 354 ms P-R-T Axes : 046 060 045 degrees QTc Int : 430 ms Normal sinus rhythm Normal ECG When compared with ECG of 21-APR-2018 09:40, No significant change was found Confirmed by SAE CASTRO ([id number]) on 10/13/2018 6:35:16 AM Referred By: Confirmed By:SAE CASTRO
--- NOTE | 2018-10-12 19:43 | RADIOLOGY IMAGING REPORT ---
FACILITY: [facility] PATIENT NAME: Italo Koch : 1935 MR: [id number] V: [id number] EXAM DATE: ORDERING PHYSICIAN: MAO ACUNA TECHNOLOGIST: Location: [facility] Patient: Italo Koch : 1935 Visit/Account:[id number] Date of Sevice: 10/12/2018 CHEST SINGLE AP Indication: Altered mental status.. Comparison: 04/21/2018. Findings: Cardiomediastinal silhouette and pulmonary vessels within normal limits for the technique and rotatio n. There is no focal infiltrate or lobar consolidation. No pneumothorax or pleural effusion. No nodule. Upper abdomen is unremarkable. No acute bony abnormality. IMPRESSION: 1. No acute cardiopulmonary process. Report Dictated By: Fermín Chowdhury at 10/12/2018 7:38 PM Report E-Signed By: Fermín Chowdhury at 10/12/2018 7:39 PM WSN:[id number]
--- NOTE | 2018-10-12 19:50 | RADIOLOGY IMAGING REPORT ---
[place] [facility] [place] NAME: Italo Koch : 1935 MR: [id number] V: [id number] EXAM DATE: ORDERING PHYSICIAN: MAO ACUNA TECHNOLOGIST: Location: [facility] [place] Patient: Italo Koch : 1935 Visit/Account:[id number] Date of Sevice: 10/12/2018 CT Head without contrast Indication: Altered mental status. Comparison: 04/21/2018. Technique: Axial CT images were obtained through the brain from the skull base to the vertex without administration of IV contrast. Reformatted coronal and sagittal images were also obtained. One of the following dose optimization techniques was utilized in the performance of this exam: autom ated exposure control; adjustment of the mA and/or kV according to the patient's size; or use of an i terative reconstruction technique. Specific details can be referenced in the facility's radiology CT exam operational policy. Findings: No evidence of mass, mass effect, or midline shift. No acute intracranial hemorrhage or acute territorial infarction. No extra-axial fluid collection or hydrocephalus. Age-related cerebral atrophy. Periventricular white matter ischemic changes consistent small vessel disease. Previous lacunar infarct in the right basal ganglia stable. Brown/white matter differentiation appears normal. Mild bilateral internal carotid ar archana calcifications. Bony structures show no fractures or lesions. 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 The visualized paranasal sinuses and mastoid air cells are clear. IMPRESSION: 1. Senescent changes without acute abnormality. Report Dictated By: Fermín Chowdhury at 10/12/2018 7:39 PM Report E-Signed By: Fermín Chowdhury at 10/12/2018 7:46 PM WSN:[id number]
[2018-10-12] MEDS ORDERED: [UNRECOGNIZED DRUG - CODE] PO (21:36)
[2018-10-12] MEDS ORDERED: METF-450 PO (21:43)
[2018-10-12 22:02] VITALS: BP 162/82
[2018-10-12 22:05] VITALS: BP 162/80
[2018-10-12] MEDS ORDERED: INFLUENZA VIRUS VAC 0.5ML SYR IM ONLY ONE (22:10)
--- NOTE | 2018-10-12 22:23 | History & Physical ---
History of Present Illness Chief Complaint Altered mental status History of Present Illness This patient resides at the [facility] and has baseline dementia. It is reported that he has been less interactive and lethargic over the last 48hrs. History Problems: (1) CVA (cerebral vascular accident) (2) BPH (benign prostatic hyperplasia) (3) DM2 (diabetes mellitus, type 2) (4) Essential hypertension Home Meds Reported Medications Metformin Hcl (METFORMIN HCL) 500 Mg Tablet, 1 TAB PO BID, TAB 10/12/18 Ferrous Sulfate (FERROUSUL) 325 Mg Tablet, 325 MG PO QDAY 10/12/18 Cyanocobalamin (Vitamin B-12) (B-12) 1,000 Mcg Tablet.er, 1000 MCG PO QDAY 08/19/18 Multivitamin (TAB-A-REBECA) 1 Each Tablet, 1 EACH PO QDAY 08/19/18 Diclofenac Sodium 1% Gel (VOLTAREN 1% GEL) 100 Gm Gel..gram., 2 GM TOP PRN 08/19/18 Acetaminophen (TYLENOL) 325 Mg Tablet, 325 MG PO PRN, TAB 08/19/18 Tramadol Hcl (TRAMADOL HCL) 50 Mg Tablet, 50-100 MG PO Q6H, TAB 04/21/18 Pantoprazole Sodium (PANTOPRAZOLE SODIUM) 20 Mg Tablet.dr, 20 MG PO QDAY, TAB.SR 04/21/18 Oxybutynin Chloride (OXYBUTYNIN CHLORIDE) 5 Mg Tablet, 15 MG PO QDAY, TAB 04/21/18 Mirtazapine (MIRTAZAPINE) 7.5 Mg Tablet, 7.5 MG PO 04/21/18 Losartan Potassium (LOSARTAN POTASSIUM) 50 Mg Tablet, 50 MG PO QDAY 04/21/18 Clopidogrel Bisulfate (CLOPIDOGREL) 75 Mg Tablet, 1 TAB PO QDAY, TAB 04/21/18 Atorvastatin Calcium (ATORVASTATIN CALCIUM) 20 Mg Tablet, 1 TAB PO QDAY, TAB 04/21/18 Amlodipine Besylate (AMLODIPINE BESYLATE) 5 Mg Tablet, 1 TAB PO QDAY, TAB 04/21/18 Tamsulosin Hcl (TAMSULOSIN HCL) 0.4 Mg Cap.er.24h, 0.4 MG PO QHS, CAP 10/23/16 Discontinued Reported Medications Metformin Hcl (Metformin Er) 500 Mg Tab.sr.24h, 1000 MG PO BID, 0 Refills 03/07/11 Allergies: Coded Allergies: No Known Allergies (Verified Allergy, Mild, 10/12/18) Hx Smoking: Yes ("ONLY 1-2 CIGARETTES A DAY" ) Smoking Status: Former Smoker, Light Tobacco Smoker Caffeine Intake: Coffee Caffeine/Cups Per Day: 1 Hx Alcohol Use: No Hx Substance Use Disorder: No Review of Systems All Systems Reviewed/Normal: Yes, Except as Noted Neurological: Confusion Exam Vital Signs Vital Signs Date Time Temp Pulse Resp B/P (MAP) Pulse Ox O2 Delivery O2 Flow Rate FiO2 10/12/18 22:02 98.3 91 12 162/82 (108) 93 Room Air Neuro: No Gross deficits Eyes: PERRLA Cardiovascular: Regular Rate and Rhythm Respiratory: Clear to Auscultation GI: Abd Soft and Non-Tender Extremities: No Edema Integumentary: No Cyanosis Psych: Other (Lethargic.) Medical Decision Making Data Points Result Diagram: 10/12/18175510/12/181755 Assessment and Plan Problems: (1) Altered mental state Status: Acute Assessment & Plan: He did present with altered mental status over the last 48hrs. His CT scan was negative and his labs are not revealing. We will hold his medications and start IV hydration. (2) Leukocytosis Assessment & Plan: His urine has moderate leukocytosis, but is negative for bacteria. He is also afebrile and his WBC is normal. (3) Essential hypertension Assessment & Plan: He is on chronic treatment with amlodipine and losartan, which are both on hold. (4) DM2 (diabetes mellitus, type 2) Assessment & Plan: He is on chronic treatment with metformin, which is currently on hold. He has been placed on sliding scale level #1. (5) BPH (benign prostatic hyperplasia) Assessment & Plan: He is on chronic treatment with tamsulosin, which is currently on hold. Copies to: HAIDER BUSH DO ; Venous Thromboembolism Antithrombotics Is Pt On Any Antithrombotics?: No Exam Sepsis Risk: No Definite Risk Problem Qualifiers (1) Altered mental state: Altered mental status type: unspecified Qualified Codes: R41.82 - Altered mental status, unspecified SAE CASTRO DO Oct 12, 2018 22:23
[2018-10-12] MEDS ORDERED: INSULIN HUM LISPRO 100 UN/ML 3 ML VIAL SUBQ PRN (22:25)
[2018-10-12] MEDS: NS(*) 0.9% 1000 ML BAG 1,000 ML IV PRN (22:48)
[2018-10-13 06:25] LABS: PLATELET COUNT, AUTOMATED 258 K/uL (150-450)
--- NOTE | 2018-10-13 08:17 | NUR ---
random blood glucose with AM labs. no finger stick necessary. glucose of 128 mg/dL. Addendum: 10/13/18 at 0817 by BRYCE CARDENAS RN Amended: Links added.
[2018-10-13 09:26] VITALS: BP 144/82
[2018-10-13 14:21] VITALS: BP 160/84
--- NOTE | 2018-10-13 14:48 | RADIOLOGY IMAGING REPORT ---
FACILITY: [facility] - [place] PATIENT NAME: Italo Koch : 1935 MR: [id number] V: [id number] EXAM DATE: ORDERING PHYSICIAN: MARIA TERESA MONTGOMERY TECHNOLOGIST: Location: [facility] Patient: Italo Koch : 1935 Visit/Account:[id number] Date of Sevice: 10/13/2018 EXAMINATION: MRI Brain without intravenous contrast HISTORY: Encephalopathy. COMPARISON: Noncontrast head CT dated 10/12/2018. TECHNIQUE: Multi-planar, multi-sequence brain MRI was performed without IV contrast administration. FINDINGS: Suboptimal evaluation secondary to motion artifact. Brain volume: Moderate generalized volume loss. Sagittal midline structures: Negative. Ventricles: Negative. Acute ischemic changes: None. Hemorrhage: None. Masses / edema: None. Brown-white: Negative. White matter: Confluent periventricular FLAIR hyperintensity. Vessels: Negative. Extra-axial: Negative. Calvarium / scalp: Negative. Skull base: Negative. Visualized sinuses / orbits: Right globe prosthesis. Visualized upper neck: Negative. IMPRESSION: 1. Suboptimal evaluation secondary to motion artifact. 2. No definite acute abnormality. 3. Severe chronic white matter disease is nonspecific but most likely represents chronic microvascul ar ischemia. Report Dictated By: Cachorro Owusu MD at 10/13/2018 2:39 PM Report E-Signed By: Cachorro Owusu MD at 10/13/2018 2:43 PM WSN:[id number]
[2018-10-13] MEDS: NS(*) 0.9% 1000 ML BAG 1,000 ML IV PRN (16:48)
--- NOTE | 2018-10-13 19:00 | Hospitalist Progress Note ---
Subjective Progress Notes Subjective 83M admitted for decreased LOC. Slowly improving throughout the day. Work up thus far negative, suspect waxing and waning with dementia. Physical Exam Vital Signs Date Time Temp Pulse Resp B/P (MAP) Pulse Ox O2 Delivery O2 Flow Rate FiO2 10/13/18 17:55 97.9 84 94 Nasal Cannula 0.5 10/13/18 14:21 18 160/84 (109) Intake and Output 10/13/18 07:00 Intake Total 1000 ml Output Total 200 ml Balance 800 ml Intake IV Total 1000 ml Output Urine Total 200 ml # Voids 1 # Bowel Movements 1 General Appearance: No Acute Distress (withdraws to pain, no spontaneous movment other than swallowing) Neuro: No Gross deficits Cardiovascular: Normal Rhythm & Peripheral Pulses Respiratory: No Respiratory Distress GI: Soft and Non-Tender Result Diagram: 10/13/1853110/13/18531 Assessment and Plan Problems: (1) Altered mental state Status: Acute Assessment & Plan: He did present with altered mental status over the last 48hrs. His CT scan was negative and his labs are not revealing. We will hold his medications and start IV hydration. MRI was negative for acute pathology, EEG pending. Has improved and moves spontaneously but does not follow commands. (2) Essential hypertension Assessment & Plan: He is on chronic treatment with amlodipine and losartan, which are both on hold. (3) DM2 (diabetes mellitus, type 2) Assessment & Plan: He is on chronic treatment with metformin, which is currently on hold. He has been placed on sliding scale level #1. (4) BPH (benign prostatic hyperplasia) Assessment & Plan: He is on chronic treatment with tamsulosin, which is currently on hold. (5) Pyuria Assessment & Plan: His urine has moderate leukocytosis, but is negative for bacteria. He is also afebrile and his WBC is normal. Exam Sepsis Risk: No Definite Risk Problem Qualifiers (1) Altered mental state: Altered mental status type: unspecified Qualified Codes: R41.82 - Altered mental status, unspecified LAURA MONTGOMERYMARIA TERESA October 13, 2018 19:00
[2018-10-13 19:30] VITALS: BP 114/80
[2018-10-14 03:49] VITALS: BP 142/66
[2018-10-14] MEDS: NS(*) 0.9% 1000 ML BAG 1,000 ML IV PRN ×2 (06:05→23:49)
--- NOTE | 2018-10-14 10:38 | Hospitalist Progress Note ---
Subjective Progress Notes Subjective He is awake and alert. Oriented only to person. Physical Exam Vital Signs Date Time Temp Pulse Resp B/P (MAP) Pulse Ox O2 Delivery O2 Flow Rate FiO2 10/14/18 10:17 90 10/14/18 03:49 99.8 77 18 142/66 (91) Nasal Cannula 1.0 Intake and Output 10/14/18 07:00 Intake Total 2000 ml Balance 2000 ml Intake IV Total 2000 ml # Voids 7 General Appearance: Alert, Awake ENT: Other (oral mucosa/lips dry) Cardiovascular: Regular Rate and Rhythm Respiratory: Clear to Auscultation (poor effort) GI: Soft and Non-Tender Extremities: Warm, Perfused, Other (contractures) Result Diagram: 10/13/1853110/13/18531 Assessment and Plan Problems: (1) Altered mental state Status: Acute Assessment & Plan: He did present with altered mental status at the assisted. His CT scan was negative and his labs were not revealing, other than some pyuria. MRI was negative for acute pathology. EEG without seizure focus. He has improved with essentially just IV fluids. Will re-check UA with culture and treat if needed. (2) Essential hypertension Assessment & Plan: He is on chronic treatment with amlodipine and losartan, which are both on hold. BPs have been acceptable. (3) DM2 (diabetes mellitus, type 2) Assessment & Plan: He is on chronic treatment with metformin, which is currently on hold. He has been placed on sliding scale level #1. He has not required much in the way of supplemental insulin. (4) BPH (benign prostatic hyperplasia) Assessment & Plan: He is on chronic treatment with tamsulosin, which is currently on hold. (5) Pyuria Assessment & Plan: His urine had moderate leukocytosis, but was negative for bacteria. He was initially afebrile, but has had some slight elevation. His WBC has been at upper limits of normal. Will check repeat UA with culture. Exam Sepsis Risk: No Definite Risk Problem Qualifiers (1) Altered mental state: Altered mental status type: unspecified Qualified Codes: R41.82 - Altered mental status, unspecified CLEVE EVANS MD October 14, 2018 10:38
[2018-10-14 11:42] VITALS: BP 159/92
[2018-10-14] MEDS ORDERED: OXYB15TA14 PO (12:02)
[2018-10-14] MEDS ORDERED: PANT40TA65 PO (12:02)
[2018-10-14 14:50] VITALS: BP 157/92
[2018-10-14 19:28] VITALS: BP 154/100
[2018-10-14] MEDS ORDERED: TAMSULOSIN HCL 0.4 MG CAP PO SCH (21:00)
[2018-10-15 05:15] VITALS: BP 156/94
[2018-10-15 06:23] LABS: PLATELET COUNT, AUTOMATED 254 K/uL (150-450)
[2018-10-15 07:26] VITALS: BP 118/78
[2018-10-15] MEDS ORDERED: CLOPIDOGREL BISULFATE 75MG TAB PO SCH (09:00)
--- NOTE | 2018-10-15 11:42 | Hospitalist Depart ---
Discharge Summary Reason for Hosp/Final Diag: (1) Altered mental state Status: Acute Hospital Course & Plan: He did present with altered mental status at the halfway. His CT scan was negative and his labs were not revealing, other than some pyuria. UA negative. MRI was negative for acute pathology. EEG without seizure focus. He has improved with essentially just IV fluids and stopping medications. (2) Essential hypertension Hospital Course & Plan: He is on chronic treatment with amlodipine and losartan, which will be stopped. BPs have been acceptable. (3) DM2 (diabetes mellitus, type 2) Hospital Course & Plan: He is on chronic treatment with metformin, which now has been stopped. He was placed on sliding scale level #1, but has not required any supplemental insulin. (4) BPH (benign prostatic hyperplasia) Hospital Course & Plan: He is on chronic treatment with tamsulosin, which was resumed. (5) Pyuria Hospital Course & Plan: His urine had moderate leukocytosis, but was negative for bacteria. He was initially afebrile, but has had some slight elevation. His WBC has been at upper limits of normal. Recheck UA shows no infection and decreased WBC. Departure Latest Vital Signs Vital Signs 10/14/18 10/15/18 10/15/18 20:17 07:26 07:45 Temp 98.4 Pulse 60 Resp 16 B/P (MAP) 118/78 (91) Pulse Ox 92 O2 Delivery Room Air O2 Flow Rate 1.0 Weight (Pounds): 137 Weight (Ounces): 8.0 Result Diagram: 10/15/1852710/15/18527 Condition: Improved Discharge: [facility] Discharge Instructions Home Meds Reported Medications Pantoprazole Sodium (PANTOPRAZOLE SODIUM) 40 Mg Tablet.dr, 40 MG PO QAM, TAB.SR 10/14/18 Ferrous Sulfate (FERROUSUL) 325 Mg Tablet, 325 MG PO QDAY 10/12/18 Cyanocobalamin (Vitamin B-12) (B-12) 1,000 Mcg Tablet.er, 1000 MCG PO QDAY 08/19/18 Multivitamin (TAB-A-REBECA) 1 Each Tablet, 1 EACH PO QDAY With breakfast 08/19/18 Diclofenac Sodium 1% Gel (VOLTAREN 1% GEL) 100 Gm Gel..gram., 2 GM TOP PRN PRN for PAIN MDD 4 08/19/18 Acetaminophen (TYLENOL) 325 Mg Tablet, 2 TAB PO Q6H PRN for PAIN, TAB 08/19/18 Clopidogrel Bisulfate (CLOPIDOGREL) 75 Mg Tablet, 1 TAB PO QDAY, TAB 04/21/18 Tamsulosin Hcl (TAMSULOSIN HCL) 0.4 Mg Cap.er.24h, 1 CAP PO QDAY, CAP 10/23/16 Discontinued Reported Medications Oxybutynin Chloride (OXYBUTYNIN CHLORIDE ER) 15 Mg Tab.er.24, 15 MG PO HS, TAB.SA 10/14/18 Metformin Hcl (METFORMIN HCL) 500 Mg Tablet, 1 TAB PO BID, TAB 10/12/18 Tramadol Hcl (TRAMADOL HCL) 50 Mg Tablet, 1 TAB PO Q6H PRN for PAIN, TAB 04/21/18 Mirtazapine (MIRTAZAPINE) 7.5 Mg Tablet, 7.5 MG PO for Sleep Give PM every Thuu Sat Sun 04/21/18 Losartan Potassium (LOSARTAN POTASSIUM) 50 Mg Tablet, 50 MG PO QDAY 04/21/18 Atorvastatin Calcium (ATORVASTATIN CALCIUM) 20 Mg Tablet, 1 TAB PO HS, TAB 04/21/18 Amlodipine Besylate (AMLODIPINE BESYLATE) 5 Mg Tablet, 1 TAB PO HS, TAB 04/21/18 Pantoprazole Sodium (PANTOPRAZOLE SODIUM) 20 Mg Tablet.dr, 20 MG PO QDAY, TAB.SR 04/21/18 Oxybutynin Chloride (OXYBUTYNIN CHLORIDE) 5 Mg Tablet, 15 MG PO QDAY, TAB 04/21/18 Metformin Hcl (Metformin Er) 500 Mg Tab.sr.24h, 1000 MG PO BID, 0 Refills 03/07/11 Diet: Regular Activity: As Tolerated Special Instructions: Follow up with Primary Care Provider in one week. See adjusted medication list. Venous Thromboembolism Antithrombotics Is Pt On Any Antithrombotics?: No Problem Qualifiers (1) Altered mental state: Altered mental status type: unspecified Qualified Codes: R41.82 - Altered mental status, unspecified ARIEL LO October 15, 2018 11:42
[2018-10-15 13:59] VITALS: BP 150/98
== END 2018-10-15 11:28 ==
LOC: ER 18:13 → MED 21:25 → INTOOBSV 21:25
PROVIDERS: ADMIT Family Medicine; ATTEND Family Medicine
DX: R41.82 Altered mental status, unspecified (principal); E11.9 Type 2 diabetes mellitus without complications; I10 Essential (primary) hypertension; N40.0 Benign prostatic hyperplasia without lower urinary tract symptoms; D72.829 Elevated white blood cell count, unspecified; N39.0 Urinary tract infection, site not specified
CPT/HCPCS: 36415; 36416; 70450; 70551; 71045; 81001; 82948; 83605; 84484; 85025; 87040; 87077; 87088; 87186; 93005; 95819; 96360; 96361; 99284; A9270; G0378; J7030; 82040; 82247; 82310; 82374; 82435; 82565; 82947; 84075; 84132; 84155; 84295; 84450; 84460; 84520

== ENCOUNTER → 2018-10-22 | Outpatient (REF) | payer MEDICARE, MEDICAID ==
[~2018-10-22] MED LIST changes: +METF-450 PO; +OXYB15TA14 PO; +[UNRECOGNIZED DRUG - CODE] PO
== END ==
LOC: ZZLCC 11:33
PROVIDERS: ATTEND Family Medicine
DX: R05 Cough (principal)
CPT/HCPCS: 85027

== ENCOUNTER → 2018-12-13 | Outpatient (REF) | payer MEDICARE, MEDICAID | LOC: ZZLCC 18:27 | PROVIDERS: ATTEND Family Medicine | DX: E11.9 Type 2 diabetes mellitus without complications (principal) | CPT/HCPCS: 82040; 82247; 82310; 82374; 82435; 82565; 82947; 83036; 84075; 84132; 84155; 84295; 84450; 84460; 84520 ==

== ENCOUNTER → 2018-12-23 | Outpatient (CLI) | payer MEDICARE, MEDICAID ==
--- NOTE | 2018-12-23 10:38 | RADIOLOGY IMAGING REPORT ---
FACILITY: [facility] [place] PATIENT NAME: Italo Koch : 1935 MR: [id number] V: [id number] EXAM DATE: ORDERING PHYSICIAN: HAIDER BUSH TECHNOLOGIST: Location: [facility] [place] Patient: Italo Koch : 1935 Visit/Account:[id number] Date of Sevice: 12/23/2018 Technique: LIVER HISTORY: Abnormal LFTs Comparison: None Technique: Multiple grayscale, color and Doppler sonographic images were obtained for an ultrasound o f the right upper quadrant. Findings: Liver is normal in size, contour, and echotexture and measures 13.7 cm in length. There is normal hep atopedal portal venous flow. The gallbladder is surgically absent. Common duct measures 5 mm in maximum diameter with no evidence of shadowing stone. The pancreas is obscured. Abdominal aorta and IVC are patent and unremarkable. The right kidney is normal in size, contour, and echotexture measuring 8.4 cm x 3.6 cm x 3.8 cm. IMPRESSION: 1. Status post cholecystectomy; otherwise unremarkable right upper quadrant ultrasound. 2. Nonvisualization of the pancreas. Report Dictated By: Victorino Persaud DO at 12/23/2018 10:24 AM Report E-Signed By: Victorino Persaud DO at 12/23/2018 10:30 AM WSN:[id number]
== END ==
LOC: US 00:38
PROVIDERS: ATTEND Family Medicine
DX: R94.5 Abnormal results of liver function studies (principal); Z90.49 Acquired absence of other specified parts of digestive tract
CPT/HCPCS: 76705